=== PATIENT | male | born 1990 | race Caucasian/White ===

== ENCOUNTER 2017-06-02 10:01 | Emergency (ER) | payer OTHER ==
[~2017-06-02] VITALS: Ht 154.9 cm; Wt 50.3 kg
[2017-06-02 10:56] LABS: BASOPHIL % 0.3 % (0-2); PLATELET COUNT 293 x10^3mcL (130-400); RED CELL DISTRIBUTION WIDTH 14.3 % (11.5-14.5)
[2017-06-02 11:03] LABS: CALCIUM 9.6 mg/dL (8.5-10.1); CARBON DIOXIDE 31.4 mmol/L (21-32); CHLORIDE SERUM 100 mmol/L (98-107); GFR1 > 60 mL/min; GLUCOSE SERUM 113 mg/dL (74-106); POTASSIUM SERUM 4.4 mmol/L (3.5-5.1); SODIUM SERUM 138 mmol/L (136-145)
[2017-06-02 11:07] LABS: ALBUMIN 3.7 g/dL (3.4-5.0); ALKALINE PHOSPHATASE 74 U/L (46-116); ALT/SGPT 43 U/L (16-63); AST/SGOT 15 U/L (15-37); BILIRUBIN TOTAL 0.4 mg/dL (0.20-1.00); LIPASE 49 IU/L (73-393); TOTAL PROTEIN, SERUM 7.6 g/dL (6.4-8.2)
[2017-06-02 11:08] LABS: AMYLASE 22 U/L (25-115)
[2017-06-02 12:00] LABS: AMPHETAMINE QUAL UR NONE DETECTED (NEG <=1000)
[2017-06-02 12:02] LABS: microscopic required? YES; urine erythrocyte TRACE (NEGATIVE)
[2017-06-02 13:56] VITALS: BP 135/100
== END 2017-06-02 13:56 | disposition home or self-care (01) ==
LOC: ED 10:01
PROVIDERS: Emergency Medicine
DX: R11.10 Vomiting, unspecified (principal); E11.9 Type 2 diabetes mellitus without complications; F12.90 Cannabis use, unspecified, uncomplicated; F17.210 Nicotine dependence, cigarettes, uncomplicated; Z71.6 Tobacco abuse counseling
CPT/HCPCS: 82962; 99406; J1630; J2060; Q0092; Q9967

== ENCOUNTER 2017-06-28 12:44 | Inpatient (IN) | payer OTHER ==
[~2017-06-28] VITALS: Ht 154.9 cm; Wt 53.1 kg
[2017-06-28 13:12] LABS: BASOPHIL % 0.2 % (0-2); PLATELET COUNT 339 x10^3mcL (130-400); RED CELL DISTRIBUTION WIDTH 14.1 % (11.5-14.5)
[2017-06-28 13:30] LABS: CALCIUM 10.2 mg/dL (8.5-10.1); CARBON DIOXIDE 32.4 mmol/L (21-32); CHLORIDE SERUM 101 mmol/L (98-107); CREATININE SERUM 0.9 mg/dL (0.7-1.3); GFR1 > 60 mL/min; GLUCOSE SERUM 168 mg/dL (74-106); POTASSIUM SERUM 4.2 mmol/L (3.5-5.1); SODIUM SERUM 140 mmol/L (136-145)
[2017-06-28 13:34] LABS: ALBUMIN 3.8 g/dL (3.4-5.0); ALKALINE PHOSPHATASE 100 U/L (46-116); ALT/SGPT 20 U/L (16-63); AST/SGOT 13 U/L (15-37); BILIRUBIN TOTAL 0.5 mg/dL (0.20-1.00); LIPASE 80 IU/L (73-393); TOTAL PROTEIN, SERUM 8.1 g/dL (6.4-8.2); TRIGLYCERIDES 147 mg/dL (<150)
[2017-06-28 13:36] LABS: CHOLESTEROL 228 mg/dL (<200); CHOLESTEROL/HDL RATIO 2.1; HDL CHOLESTEROL 110 mg/dL (40-60)
[2017-06-28 13:43] LABS: FREE T4 1.1 ng/dL (0.76-1.46); FREE THYROXINE INDEX 3.3 ug/dL (1.4-4.5); T4(THYROXINE) 8.8 ug/dL (4.7-13.3)
[2017-06-28 14:08] LABS: microscopic required? YES; urine erythrocyte 1+ (NEGATIVE)
[2017-06-28 14:12] LABS: T3 TOTAL 1.02 ng/mL
[2017-06-28] MEDS ORDERED: NOVI SQ (14:33)
[2017-06-28] MEDS ORDERED: LANTUS SOLOS100 U/M1 (14:34)
[2017-06-28] MEDS ORDERED: LANTUS SOLOS100 U/M1 SQ (14:34)
[2017-06-28] MEDS ORDERED: REG10 PO (14:35)
[2017-06-28] MEDS ORDERED: ROB500 PO (14:38)
[2017-06-28] MEDS ORDERED: GOOD SENSE OMEP20 MG PO (14:38)
[2017-06-28] MEDS ORDERED: ZOFRAN8 MG PO (14:39)
[2017-06-28] MEDS ORDERED: NEU300 PO (14:39)
[2017-06-28] MEDS ORDERED: LIDODERM51 TOP (14:39)
[2017-06-28] MEDS ORDERED: EPZICOM1 TAB (14:39)
[2017-06-28 15:22] LABS: AMPHETAMINE QUAL UR NONE DETECTED (NEG <=1000)
[2017-06-28 15:24] LABS: MAGNESIUM 2.1 mg/dL (1.8-2.4); PHOSPHOROUS 3.5 mg/dL (2.5-4.9)
[2017-06-28 16:07] VITALS: BP 149/88
[2017-06-28 20:57] VITALS: BP 141/92
[2017-06-29 05:28] VITALS: BP 138/86
[2017-06-29 07:09] LABS: BASOPHIL % 0.4 % (0-2); PLATELET COUNT 251 x10^3mcL (130-400); RED CELL DISTRIBUTION WIDTH 14.1 % (11.5-14.5)
[2017-06-29 07:20] LABS: CALCIUM 8.4 mg/dL (8.5-10.1); CARBON DIOXIDE 30.8 mmol/L (21-32); CHLORIDE SERUM 107 mmol/L (98-107); CREATININE SERUM 0.8 mg/dL (0.7-1.3); GFR1 > 60 mL/min; GLUCOSE SERUM 105 mg/dL (74-106); MAGNESIUM 1.7 mg/dL (1.8-2.4); PHOSPHOROUS 3.9 mg/dL (2.5-4.9); POTASSIUM SERUM 3.7 mmol/L (3.5-5.1); SODIUM SERUM 142 mmol/L (136-145)
[2017-06-29 09:31] VITALS: BP 133/74
== END 2017-06-29 12:18 | disposition left against medical advice (07) | DRG 48 ==
LOC: ED 12:44 → DU 15:13
PROVIDERS: Internal Medicine Gastroenterology; Specialist; ADMIT Family Medicine
PROC: 0DB78ZX Excision of Stomach, Pylorus, Via Natural or Artificial Opening Endoscopic, Diagnostic (ICD-10-PCS; principal; 2017-06-29 09:45)
DX: E10.43 Type 1 diabetes mellitus with diabetic autonomic (poly)neuropathy (principal); N17.0 Acute kidney failure with tubular necrosis; E10.65 Type 1 diabetes mellitus with hyperglycemia; K31.84 Gastroparesis; K21.9 Gastro-esophageal reflux disease without esophagitis; E83.52 Hypercalcemia; E78.5 Hyperlipidemia, unspecified; F12.10 Cannabis abuse, uncomplicated; F14.10 Cocaine abuse, uncomplicated; Z79.4 Long term (current) use of insulin; Z68.22 Body mass index [BMI] 22.0-22.9, adult; Z79.899 Other long term (current) drug therapy; Z53.29 Procedure and treatment not carried out because of patient's decision for other reasons; Z53.21 Procedure and treatment not carried out due to patient leaving prior to being seen by health care provider; I10 Essential (primary) hypertension
CPT/HCPCS: 43235; 82962; 83880; 84439; J1170; J1200; J1610; J2250; J2270; J2310; J2405; J2765; J3010; J3490; J7030; J7042; J8597; Q0092

== ENCOUNTER 2017-08-16 07:52 | Emergency (ER) | payer OTHER ==
[~2017-08-16] VITALS: Ht 154.9 cm; Wt 54.4 kg
[~2017-08-16 07:52] MED LIST: EPZICOM1 TAB; GOOD SENSE OMEP20 MG PO; LANTUS SOLOS100 U/M1; LANTUS SOLOS100 U/M1 SQ; LIDODERM51 TOP; NEU300 PO; NOVI SQ; REG10 PO; ROB500 PO; ZOFRAN8 MG PO
[2017-08-16 08:36] LABS: BASOPHIL % 0.3 % (0-2); PLATELET COUNT 269 x10^3mcL (130-400); RED CELL DISTRIBUTION WIDTH 14.3 % (11.5-14.5)
[2017-08-16 08:48] LABS: CALCIUM 9.3 mg/dL (8.5-10.1); CARBON DIOXIDE 30.9 mmol/L (21-32); CHLORIDE SERUM 103 mmol/L (98-107); GFR1 > 60 mL/min; GLUCOSE SERUM 231 mg/dL (74-106); POTASSIUM SERUM 4.2 mmol/L (3.5-5.1); SODIUM SERUM 138 mmol/L (136-145)
[2017-08-16 08:52] LABS: ALBUMIN 3.5 g/dL (3.4-5.0); ALKALINE PHOSPHATASE 75 U/L (46-116); ALT/SGPT 20 U/L (16-63); AST/SGOT 21 U/L (15-37); BILIRUBIN TOTAL 0.25 mg/dL (0.20-1.00); LIPASE 82 IU/L (73-393); TOTAL PROTEIN, SERUM 7.4 g/dL (6.4-8.2)
[2017-08-16 08:53] LABS: AMYLASE 24 U/L (25-115)
[2017-08-16 11:17] VITALS: BP 147/96
== END 2017-08-16 11:17 | disposition home or self-care (01) ==
LOC: ED 07:52
PROVIDERS: Specialist
DX: E11.43 Type 2 diabetes mellitus with diabetic autonomic (poly)neuropathy (principal); K31.84 Gastroparesis; K21.9 Gastro-esophageal reflux disease without esophagitis
CPT/HCPCS: 83880; J1170; J1200; J3010; J7030

== ENCOUNTER 2017-09-25 11:00 | Emergency (ER) | payer OTHER ==
[~2017-09-25] VITALS: Ht 154.9 cm; Wt 52.2 kg
[2017-09-25 11:37] VITALS: Ht 154.9 cm; Wt 52.2 kg
[2017-09-25 12:29] LABS: PLATELET COUNT 329 x10^3mcL (130-400); RED CELL DISTRIBUTION WIDTH 14.1 % (11.5-14.5)
[2017-09-25 12:30] LABS: BASOPHIL % 0.7 % (0-2)
[2017-09-25 12:33] LABS: ALKALINE PHOSPHATASE 75 U/L (46-116); ALT/SGPT 19 U/L (16-63); AST/SGOT 13 U/L (15-37); BILIRUBIN TOTAL 0.3 mg/dL (0.20-1.00); CALCIUM 9.7 mg/dL (8.5-10.1); CARBON DIOXIDE 29.5 mmol/L (21-32); CHLORIDE SERUM 101 mmol/L (98-107); CREATININE SERUM 0.9 mg/dL (0.7-1.3); GFR1 > 60 mL/min; GLUCOSE SERUM 150 mg/dL (74-106); LIPASE 65 IU/L (73-393); POTASSIUM SERUM 4.5 mmol/L (3.5-5.1); SODIUM SERUM 140 mmol/L (136-145); TOTAL PROTEIN, SERUM 7.8 g/dL (6.4-8.2)
[2017-09-25 13:46] VITALS: BP 127/61
== END 2017-09-25 13:46 | disposition home or self-care (01) ==
LOC: ED 11:00
PROVIDERS: Emergency Medicine
DX: R10.9 Unspecified abdominal pain (principal); R11.2 Nausea with vomiting, unspecified; E11.43 Type 2 diabetes mellitus with diabetic autonomic (poly)neuropathy; K31.84 Gastroparesis; F17.200 Nicotine dependence, unspecified, uncomplicated; Z88.5 Allergy status to narcotic agent
CPT/HCPCS: J2765; J3010

== ENCOUNTER 2017-10-02 14:23 | Emergency (ER) | payer OTHER ==
[~2017-10-02] VITALS: Ht 154.9 cm; Wt 51.7 kg
[2017-10-02 14:27] VITALS: Ht 154.9 cm; Wt 51.7 kg
[2017-10-02 15:36] LABS: BASOPHIL % 0.5 % (0-2); PLATELET COUNT 269 x10^3mcL (130-400); RED CELL DISTRIBUTION WIDTH 14.3 % (11.5-14.5)
[2017-10-02 15:48] LABS: CALCIUM 9.1 mg/dL (8.5-10.1); CARBON DIOXIDE 28.7 mmol/L (21-32); CHLORIDE SERUM 100 mmol/L (98-107); CREATININE SERUM 0.9 mg/dL (0.7-1.3); GFR1 > 60 mL/min; GLUCOSE SERUM 121 mg/dL (74-106); POTASSIUM SERUM 3.8 mmol/L (3.5-5.1); SODIUM SERUM 139 mmol/L (136-145)
[2017-10-02 15:51] LABS: ALBUMIN 3.4 g/dL (3.4-5.0); ALKALINE PHOSPHATASE 60 U/L (46-116); ALT/SGPT 18 U/L (16-63); AST/SGOT 21 U/L (15-37); BILIRUBIN TOTAL 0.3 mg/dL (0.20-1.00); LIPASE 46 IU/L (73-393)
[2017-10-02 18:00] VITALS: BP 122/75
== END 2017-10-02 18:00 | disposition home or self-care (01) ==
LOC: ED 14:23
PROVIDERS: Emergency Medicine Emergency Medical Services
DX: K31.84 Gastroparesis (principal); E11.9 Type 2 diabetes mellitus without complications; Z88.5 Allergy status to narcotic agent
CPT/HCPCS: J1200; J1630; J1885; J2270; J2405; J3490; J7030

== ENCOUNTER 2017-10-12 05:29 | Emergency (ER) | payer OTHER ==
[~2017-10-12] VITALS: Ht 154.9 cm; Wt 50.8 kg
[2017-10-12 05:36] VITALS: Ht 154.9 cm; Wt 50.8 kg
[2017-10-12 07:00] LABS: BASOPHIL % 0.3 % (0-2); PLATELET COUNT 357 x10^3mcL (130-400); RED CELL DISTRIBUTION WIDTH 14.4 % (11.5-14.5)
[2017-10-12 07:17] LABS: CALCIUM 8.9 mg/dL (8.5-10.1); CARBON DIOXIDE 30.4 mmol/L (21-32); CHLORIDE SERUM 104 mmol/L (98-107); CREATININE SERUM 0.9 mg/dL (0.7-1.3); GFR1 > 60 mL/min; GLUCOSE SERUM 140 mg/dL (74-106); POTASSIUM SERUM 3.8 mmol/L (3.5-5.1); SODIUM SERUM 143 mmol/L (136-145)
[2017-10-12 07:21] LABS: ALBUMIN 3.4 g/dL (3.4-5.0); ALKALINE PHOSPHATASE 63 U/L (46-116); ALT/SGPT 16 U/L (16-63); AMYLASE 21 U/L (25-115); AST/SGOT 14 U/L (15-37); BILIRUBIN TOTAL 0.2 mg/dL (0.20-1.00); LIPASE 60 IU/L (73-393); TOTAL PROTEIN, SERUM 7.1 g/dL (6.4-8.2)
[2017-10-12 10:19] VITALS: BP 112/78
== END 2017-10-12 10:19 | disposition home or self-care (01) ==
LOC: ED 05:29
PROVIDERS: Emergency Medicine
DX: E11.43 Type 2 diabetes mellitus with diabetic autonomic (poly)neuropathy (principal); K31.84 Gastroparesis; F12.929 Cannabis use, unspecified with intoxication, unspecified; Z88.8 Allergy status to other drugs, medicaments and biological substances
CPT/HCPCS: 83880; J1630; J2060; J3010; J7030

== ENCOUNTER 2017-10-19 07:57 | Inpatient (IN) | payer OTHER ==
[~2017-10-19] VITALS: Ht 154.9 cm; Wt 52.9 kg
[2017-10-19 08:20] LABS: BASOPHIL % 0.2 % (0-2); PLATELET COUNT 359 x10^3mcL (130-400)
[2017-10-19 08:21] LABS: RED CELL DISTRIBUTION WIDTH 14.6 % (11.5-14.5)
[2017-10-19 09:36] LABS: ALBUMIN 3.7 g/dL (3.4-5.0); ALKALINE PHOSPHATASE 63 U/L (46-116); ALT/SGPT 18 U/L (16-63); AST/SGOT 18 U/L (15-37); CALCIUM 9.1 mg/dL (8.5-10.1); CARBON DIOXIDE 28.6 mmol/L (21-32); CHLORIDE SERUM 103 mmol/L (98-107); CREATININE SERUM 0.9 mg/dL (0.7-1.3); GFR1 > 60 mL/min; LIPASE 53 IU/L (73-393); SODIUM SERUM 142 mmol/L (136-145); TOTAL PROTEIN, SERUM 7.3 g/dL (6.4-8.2)
[2017-10-19 09:51] LABS: BILIRUBIN TOTAL 0.2 mg/dL (0.20-1.00)
[2017-10-19 10:15] LABS: GLUCOSE SERUM 47 mg/dL (74-106)
[2017-10-19 10:56] LABS: CHOLESTEROL/HDL RATIO 2.1
[2017-10-19 11:05] LABS: FREE T4 0.9 ng/dL (0.76-1.46); FREE THYROXINE INDEX 2.1 ug/dL (1.4-4.5); T4(THYROXINE) 5.4 ug/dL (4.7-13.3)
[2017-10-19 11:17] LABS: T3 TOTAL 1.12 ng/mL
[2017-10-19 11:35] VITALS: BP 145/96
[2017-10-19] MEDS ORDERED: VIS25 PO (13:06)
[2017-10-19] MEDS ORDERED: BENZTROPINE MESY1 MG PO (13:07)
[2017-10-19] MEDS ORDERED: CYMBALTA30 M1 PO (13:07)
[2017-10-19] MEDS ORDERED: BENTYL20 MG PO (13:08)
[2017-10-19] MEDS ORDERED: PEPCID20 MG (13:09)
[2017-10-19] MEDS ORDERED: REGLAN10 M1 PO (13:09)
[2017-10-19] MEDS ORDERED: LANTUS SOLOS100 U/M1 SQ (13:18)
[2017-10-19] MEDS ORDERED: HALOPERIDOL2 MG PO (13:20)
[2017-10-19 15:22] LABS: microscopic required? YES; urine erythrocyte NEGATIVE (NEGATIVE)
[2017-10-19 15:30] LABS: AMPHETAMINE QUAL UR NONE DETECTED (NEG <=1000)
[2017-10-19 17:53] VITALS: BP 129/90
[2017-10-19 21:13] VITALS: BP 141/91
[2017-10-20 05:31] VITALS: BP 168/98
[2017-10-20 09:50] VITALS: BP 152/94
[2017-10-20] MEDS ORDERED: ERY250 PO (10:48)
[2017-10-20 11:06] VITALS: Ht 154.9 cm; Wt 52.9 kg
== END 2017-10-20 11:06 | disposition left against medical advice (07) | DRG 48 ==
LOC: ED 07:57 → DU 10:27 → MU 10-20 08:10
PROVIDERS: Emergency Medicine; Family Medicine
DX: E10.43 Type 1 diabetes mellitus with diabetic autonomic (poly)neuropathy (principal); N17.0 Acute kidney failure with tubular necrosis; G93.41 Metabolic encephalopathy; E10.649 Type 1 diabetes mellitus with hypoglycemia without coma; Z88.8 Allergy status to other drugs, medicaments and biological substances; K21.9 Gastro-esophageal reflux disease without esophagitis; F17.200 Nicotine dependence, unspecified, uncomplicated; K31.84 Gastroparesis; E02 Subclinical iodine-deficiency hypothyroidism; K56.7 Ileus, unspecified
CPT/HCPCS: 84439; 99406; J1885; J2060; J2405; J2550; J3010; J3490; J8597; Q0092; Q9967

== ENCOUNTER 2017-10-21 08:28 | Emergency (ER) | payer OTHER ==
[~2017-10-21] VITALS: Ht 154.9 cm; Wt 50.8 kg
[~2017-10-21 08:28] MED LIST changes: +BENTYL20 MG PO; +BENZTROPINE MESY1 MG PO; +CYMBALTA30 M1 PO; +ERY250 PO; +HALOPERIDOL2 MG PO; +PEPCID20 MG; +REGLAN10 M1 PO; +VIS25 PO
[2017-10-21 08:30] VITALS: Ht 154.9 cm; Wt 50.8 kg
[2017-10-21 08:55] VITALS: BP 164/116
== END 2017-10-21 09:51 | disposition home or self-care (01) ==
LOC: ED 08:28
DX: R10.13 Epigastric pain (principal); E11.43 Type 2 diabetes mellitus with diabetic autonomic (poly)neuropathy; K31.84 Gastroparesis; Z88.5 Allergy status to narcotic agent
CPT/HCPCS: 82962; J1885; J2270

== ENCOUNTER 2017-10-23 07:30 | Emergency (ER) | payer OTHER ==
[~2017-10-23] VITALS: Ht 152.4 cm; Wt 51.7 kg
[2017-10-23 07:37] VITALS: Ht 152.4 cm; Wt 51.7 kg
[2017-10-23 09:02] LABS: microscopic required? YES; urine erythrocyte TRACE (NEGATIVE)
[2017-10-23 09:03] LABS: BASOPHIL % 0.2 % (0-2); PLATELET COUNT 332 x10^3mcL (130-400); RED CELL DISTRIBUTION WIDTH 14.3 % (11.5-14.5)
[2017-10-23 09:09] LABS: CALCIUM 9.4 mg/dL (8.5-10.1); CARBON DIOXIDE 32.6 mmol/L (21-32); CHLORIDE SERUM 101 mmol/L (98-107); CREATININE SERUM 0.8 mg/dL (0.7-1.3); GFR1 > 60 mL/min; GLUCOSE SERUM 81 mg/dL (74-106); POTASSIUM SERUM 4.2 mmol/L (3.5-5.1); SODIUM SERUM 140 mmol/L (136-145)
[2017-10-23 09:10] LABS: AMPHETAMINE QUAL UR NONE DETECTED (NEG <=1000)
[2017-10-23 09:10] LABS: AMYLASE 29 U/L (25-115); LIPASE 136 IU/L (73-393)
[2017-10-23 12:22] VITALS: BP 120/74
== END 2017-10-23 12:22 | disposition home or self-care (01) ==
LOC: ED 07:30
PROVIDERS: Emergency Medicine
DX: R11.2 Nausea with vomiting, unspecified (principal); F12.90 Cannabis use, unspecified, uncomplicated; R10.13 Epigastric pain; F17.210 Nicotine dependence, cigarettes, uncomplicated; E11.65 Type 2 diabetes mellitus with hyperglycemia; E11.43 Type 2 diabetes mellitus with diabetic autonomic (poly)neuropathy; K31.84 Gastroparesis; Z88.8 Allergy status to other drugs, medicaments and biological substances; Z71.6 Tobacco abuse counseling
CPT/HCPCS: 99406; J1630; J2060; J7030

== ENCOUNTER 2017-11-11 11:36 | Emergency (ER) | payer OTHER ==
[~2017-11-11] VITALS: Ht 154.9 cm; Wt 50.3 kg
[2017-11-11 11:43] VITALS: Ht 154.9 cm; Wt 50.3 kg
[2017-11-11 15:32] VITALS: BP 151/103
== END 2017-11-11 15:32 | disposition home or self-care (01) ==
LOC: ED 11:36
DX: E11.43 Type 2 diabetes mellitus with diabetic autonomic (poly)neuropathy (principal); K31.84 Gastroparesis; Z79.4 Long term (current) use of insulin
CPT/HCPCS: J1885; J2270; J2405; J7030

== ENCOUNTER 2017-11-15 22:53 | Inpatient (IN) | payer OTHER ==
[~2017-11-15] VITALS: Ht 154.9 cm; Wt 53.7 kg
[2017-11-15 23:01] VITALS: Ht 154.9 cm; Wt 53.7 kg
[2017-11-16] VITALS (7 sets, daily range): BP systolic 113–162; BP diastolic 69–93
[2017-11-16 00:09] LABS: BASOPHIL % 0.1 % (0-2); PLATELET COUNT 314 x10^3mcL (130-400)
[2017-11-16 00:13] LABS: RED CELL DISTRIBUTION WIDTH 14.9 % (11.5-14.5)
[2017-11-16 00:24] LABS: CALCIUM 9.7 mg/dL (8.5-10.1); CARBON DIOXIDE 23.2 mmol/L (21-32); CHLORIDE SERUM 95 mmol/L (98-107); CREATININE SERUM 1.2 mg/dL (0.7-1.3); GFR1 > 60 mL/min; GLUCOSE SERUM 334 mg/dL (74-106); POTASSIUM SERUM 4.6 mmol/L (3.5-5.1); SODIUM SERUM 138 mmol/L (136-145)
[2017-11-16 00:27] LABS: ALBUMIN 3.6 g/dL (3.4-5.0); ALKALINE PHOSPHATASE 70 U/L (46-116); ALT/SGPT 15 U/L (16-63); AST/SGOT 20 U/L (15-37); BILIRUBIN TOTAL 0.81 mg/dL (0.20-1.00); LIPASE 43 IU/L (73-393); TOTAL PROTEIN, SERUM 7.1 g/dL (6.4-8.2)
[2017-11-16] MEDS ORDERED: LANTI (02:39)
[2017-11-16] MEDS ORDERED: NOVI (02:40)
[2017-11-16 04:03] LABS: T3 TOTAL 0.92 ng/mL
[2017-11-16] MEDS ORDERED: METOCLOPRAMIDE10 M2 PO (04:21)
[2017-11-16 04:26] LABS: FREE T4 1.86 ng/dL (0.76-1.46); FREE THYROXINE INDEX 3.6 ug/dL (1.4-4.5); T4(THYROXINE) 8.9 ug/dL (4.7-13.3)
[2017-11-16 05:17] LABS: MAGNESIUM 1.7 mg/dL (1.8-2.4); PHOSPHOROUS 5.3 mg/dL (2.5-4.9)
[2017-11-16 05:21] LABS: CHOLESTEROL/HDL RATIO 2.3
[2017-11-16 06:57] LABS: UA SPECIFIC GRAVITY 1.025 (1.005-1.035); microscopic required? YES; urine erythrocyte TRACE (NEGATIVE)
[2017-11-16 07:20] LABS: AMPHETAMINE QUAL UR NONE DETECTED (NEG <=1000)
[2017-11-16 09:12] LABS: BASOPHIL % 0.1 % (0-2); PLATELET COUNT 282 x10^3mcL (130-400)
[2017-11-16 09:16] LABS: RED CELL DISTRIBUTION WIDTH 14.7 % (11.5-14.5)
[2017-11-16 09:22] LABS: CALCIUM 8.7 mg/dL (8.5-10.1); CARBON DIOXIDE 22.2 mmol/L (21-32); CHLORIDE SERUM 100 mmol/L (98-107); CREATININE SERUM 1.2 mg/dL (0.7-1.3); GFR1 > 60 mL/min; GLUCOSE SERUM 265 mg/dL (74-106); POTASSIUM SERUM 4.1 mmol/L (3.5-5.1); SODIUM SERUM 136 mmol/L (136-145)
[2017-11-16 12:51] LABS: CALCIUM 8.7 mg/dL (8.5-10.1); CARBON DIOXIDE 26.3 mmol/L (21-32); CHLORIDE SERUM 103 mmol/L (98-107); CREATININE SERUM 1.1 mg/dL (0.7-1.3); GFR1 > 60 mL/min; GLUCOSE SERUM 149 mg/dL (74-106); POTASSIUM SERUM 3.8 mmol/L (3.5-5.1); SODIUM SERUM 139 mmol/L (136-145)
[2017-11-16 18:52] LABS: CARBON DIOXIDE 26.8 mmol/L (21-32); CHLORIDE SERUM 103 mmol/L (98-107); CREATININE SERUM 1.2 mg/dL (0.7-1.3); GFR1 > 60 mL/min; GLUCOSE SERUM 97 mg/dL (74-106); POTASSIUM SERUM 3.4 mmol/L (3.5-5.1); SODIUM SERUM 140 mmol/L (136-145)
[2017-11-16 22:03] LABS: CALCIUM 8.6 mg/dL (8.5-10.1); CARBON DIOXIDE 28.2 mmol/L (21-32); CHLORIDE SERUM 107 mmol/L (98-107); CREATININE SERUM 1.1 mg/dL (0.7-1.3); GFR1 > 60 mL/min; GLUCOSE SERUM 73 mg/dL (74-106); POTASSIUM SERUM 3.5 mmol/L (3.5-5.1); SODIUM SERUM 143 mmol/L (136-145)
[2017-11-17 02:40] LABS: CALCIUM 8.7 mg/dL (8.5-10.1); CARBON DIOXIDE 27.9 mmol/L (21-32); CHLORIDE SERUM 106 mmol/L (98-107); GFR1 > 60 mL/min; GLUCOSE SERUM 79 mg/dL (74-106); POTASSIUM SERUM 3.4 mmol/L (3.5-5.1); SODIUM SERUM 143 mmol/L (136-145)
[2017-11-17 03:26] VITALS: BP 152/92
[2017-11-17 05:59] LABS: BASOPHIL % 0.2 % (0-2); PLATELET COUNT 264 x10^3mcL (130-400)
[2017-11-17 06:01] LABS: RED CELL DISTRIBUTION WIDTH 15.3 % (11.5-14.5)
[2017-11-17 07:35] VITALS: BP 163/92
[2017-11-17 08:50] LABS: CALCIUM 8.4 mg/dL (8.5-10.1); CARBON DIOXIDE 25.3 mmol/L (21-32); CHLORIDE SERUM 105 mmol/L (98-107); CREATININE SERUM 0.9 mg/dL (0.7-1.3); GFR1 > 60 mL/min; GLUCOSE SERUM 155 mg/dL (74-106); POTASSIUM SERUM 3.7 mmol/L (3.5-5.1); SODIUM SERUM 139 mmol/L (136-145)
[2017-11-17 09:31] LABS: IRON 47 ug/dL (65-170); TOTAL IRON BINDING CAPACITY 246 ug/dL (250-450)
[2017-11-17 09:37] LABS: RED BLOOD CELLS 4.15 M/mm3 (4.52-5.90)
[2017-11-17 11:09] VITALS: BP 155/92
== END 2017-11-17 13:35 | disposition left against medical advice (07) | DRG 420 ==
LOC: ED 22:53 → DU 11-16 03:10 → IC 11-16 03:10 → DU 11-16 04:29 → IC 11-16 06:43 → DU 11-16 06:47 → IC 11-16 06:52
PROVIDERS: Emergency Medicine; Family Medicine
DX: E10.10 Type 1 diabetes mellitus with ketoacidosis without coma (principal); N17.0 Acute kidney failure with tubular necrosis; K31.84 Gastroparesis; E10.43 Type 1 diabetes mellitus with diabetic autonomic (poly)neuropathy; E87.8 Other disorders of electrolyte and fluid balance, not elsewhere classified; E83.42 Hypomagnesemia; E83.39 Other disorders of phosphorus metabolism; Z88.8 Allergy status to other drugs, medicaments and biological substances; K21.9 Gastro-esophageal reflux disease without esophagitis; F17.210 Nicotine dependence, cigarettes, uncomplicated; D64.9 Anemia, unspecified; F41.9 Anxiety disorder, unspecified; R00.0 Tachycardia, unspecified
CPT/HCPCS: 36600; 83880; 84439; J1630; J1815; J1885; J2270; J2405; J2543; J2550; J2765; J3010; J3475; J3490; J7030; J7042; Q0092

== ENCOUNTER 2017-12-13 15:27 | Emergency (ER) | payer OTHER ==
[~2017-12-13] VITALS: Ht 154.9 cm; Wt 51.7 kg
[~2017-12-13 15:27] MED LIST changes: +LANTI; +METOCLOPRAMIDE10 M2 PO; +NOVI
[2017-12-13 15:44] VITALS: Ht 154.9 cm; Wt 51.7 kg
[2017-12-13 16:29] LABS: BASOPHIL % 0.4 % (0-2); PLATELET COUNT 318 x10^3mcL (130-400)
[2017-12-13 16:41] LABS: CALCIUM 9.5 mg/dL (8.5-10.1); CARBON DIOXIDE 29.4 mmol/L (21-32); CHLORIDE SERUM 100 mmol/L (98-107); CREATININE SERUM 0.9 mg/dL (0.7-1.3); GFR1 > 60 mL/min; GLUCOSE SERUM 190 mg/dL (74-106); POTASSIUM SERUM 4.8 mmol/L (3.5-5.1); SODIUM SERUM 137 mmol/L (136-145)
[2017-12-13 16:46] LABS: ALBUMIN 3.5 g/dL (3.4-5.0); ALKALINE PHOSPHATASE 66 U/L (46-116); ALT/SGPT 20 U/L (16-63); AST/SGOT 18 U/L (15-37); BILIRUBIN TOTAL 0.63 mg/dL (0.20-1.00); LIPASE 107 IU/L (73-393); TOTAL PROTEIN, SERUM 7.2 g/dL (6.4-8.2)
[2017-12-13 17:39] VITALS: BP 168/101
[2017-12-14] MEDS ORDERED: GABAPENTIN300 M4 PO (20:18)
[2017-12-14] MEDS ORDERED: NEU300 PO (20:19)
== END 2017-12-13 17:39 | disposition home or self-care (01) ==
LOC: ED 15:27
PROVIDERS: Emergency Medicine
DX: E11.43 Type 2 diabetes mellitus with diabetic autonomic (poly)neuropathy (principal); K31.84 Gastroparesis; Z88.5 Allergy status to narcotic agent
CPT/HCPCS: J1200; J2270; J2765; J7030

== ENCOUNTER 2017-12-14 01:20 | Inpatient (IN) | payer OTHER ==
[~2017-12-14] VITALS: Ht 154.9 cm; Wt 55.0 kg
[2017-12-14 01:39] VITALS: Ht 154.9 cm; Wt 55.0 kg
[2017-12-14 02:36] LABS: PLATELET COUNT 326 x10^3mcL (130-400); RED CELL DISTRIBUTION WIDTH 14.5 % (11.5-14.5)
[2017-12-14 02:46] LABS: CALCIUM 9.6 mg/dL (8.5-10.1); CARBON DIOXIDE 24.6 mmol/L (21-32); CHLORIDE SERUM 97 mmol/L (98-107); GFR1 > 60 mL/min; GLUCOSE SERUM 337 mg/dL (74-106); POTASSIUM SERUM 4.4 mmol/L (3.5-5.1); SODIUM SERUM 133 mmol/L (136-145)
[2017-12-14 02:51] LABS: ALBUMIN 3.5 g/dL (3.4-5.0); ALKALINE PHOSPHATASE 67 U/L (46-116); ALT/SGPT 18 U/L (16-63); AST/SGOT 15 U/L (15-37); BILIRUBIN TOTAL 0.8 mg/dL (0.20-1.00); LIPASE 58 IU/L (73-393); TOTAL PROTEIN, SERUM 6.8 g/dL (6.4-8.2)
[2017-12-14 02:52] LABS: AMYLASE 24 U/L (25-115)
[2017-12-14 03:04] LABS: BAND NEUTROPHIL 1 % (0-10); BASOPHIL 0 % (0-2); MONOCYTE 3 % (0-7); SEGMENTED NEUTROPHILS 85 % (37-75)
[2017-12-14 03:05] LABS: PLATELET MORPHOLOGY PLATELETS NORMAL; rbc morphology (normal/abnorm) NORMAL (NORMAL)
[2017-12-14 03:35] LABS: UA SPECIFIC GRAVITY 1.025 (1.005-1.035); microscopic required? YES; urine erythrocyte 2+ (NEGATIVE)
[2017-12-14 03:52] LABS: AMPHETAMINE QUAL UR NONE DETECTED (NEG <=1000)
[2017-12-14 07:55] LABS: PLATELET COUNT 319 x10^3mcL (130-400)
[2017-12-14 07:56] LABS: BASOPHIL % 0 % (0-2); RED CELL DISTRIBUTION WIDTH 15.6 % (11.5-14.5)
[2017-12-14 08:23] LABS: T3 TOTAL 0.63 ng/mL
[2017-12-14 08:38] LABS: CHOLESTEROL/HDL RATIO 1.8
[2017-12-14 09:30] LABS: FREE T4 1.23 ng/dL (0.76-1.46); T4(THYROXINE) 8.2 ug/dL (4.7-13.3)
[2017-12-14 10:28] LABS: CALCIUM 9.6 mg/dL (8.5-10.1); CARBON DIOXIDE 16.2 mmol/L (21-32); CHLORIDE SERUM 99 mmol/L (98-107); GFR1 > 60 mL/min; GLUCOSE SERUM 343 mg/dL (74-106); MAGNESIUM 1.6 mg/dL (1.8-2.4); PHOSPHOROUS 4.1 mg/dL (2.5-4.9); POTASSIUM SERUM 4.9 mmol/L (3.5-5.1); SODIUM SERUM 138 mmol/L (136-145)
[2017-12-14 13:42] VITALS: BP 148/72
[2017-12-14 14:06] LABS: CALCIUM 9.3 mg/dL (8.5-10.1); CARBON DIOXIDE 20.5 mmol/L (21-32); CREATININE SERUM 1.4 mg/dL (0.7-1.3); GFR1 > 60 mL/min; GLUCOSE SERUM 287 mg/dL (74-106); MAGNESIUM 1.9 mg/dL (1.8-2.4); PHOSPHOROUS 3.9 mg/dL (2.5-4.9)
[2017-12-14 14:14] LABS: CHLORIDE SERUM 100 mmol/L (98-107); POTASSIUM SERUM 4.4 mmol/L (3.5-5.1); SODIUM SERUM 136 mmol/L (136-145)
[2017-12-14 15:34] VITALS: BP 132/63
[2017-12-14 16:31] LABS: CALCIUM 8.9 mg/dL (8.5-10.1); CARBON DIOXIDE 25.5 mmol/L (21-32); CHLORIDE SERUM 105 mmol/L (98-107); CREATININE SERUM 1.3 mg/dL (0.7-1.3); GFR1 > 60 mL/min; GLUCOSE SERUM 146 mg/dL (74-106); MAGNESIUM 2.6 mg/dL (1.8-2.4); PHOSPHOROUS 3.3 mg/dL (2.5-4.9); POTASSIUM SERUM 4.1 mmol/L (3.5-5.1); SODIUM SERUM 140 mmol/L (136-145)
[2017-12-14 19:45] VITALS: BP 139/85
[2017-12-14] MEDS ORDERED: GABAPENTIN300 M4 PO (20:18)
[2017-12-14] MEDS ORDERED: NEU300 PO (20:19)
[2017-12-14 20:46] LABS: CALCIUM 8.9 mg/dL (8.5-10.1); CARBON DIOXIDE 24.4 mmol/L (21-32); CHLORIDE SERUM 104 mmol/L (98-107); CREATININE SERUM 1.1 mg/dL (0.7-1.3); GFR1 > 60 mL/min; GLUCOSE SERUM 95 mg/dL (74-106); MAGNESIUM 2.4 mg/dL (1.8-2.4); PHOSPHOROUS 3.1 mg/dL (2.5-4.9); POTASSIUM SERUM 3.9 mmol/L (3.5-5.1); SODIUM SERUM 139 mmol/L (136-145)
[2017-12-14 23:05] VITALS: BP 130/77
[2017-12-15 00:59] LABS: CALCIUM 8.8 mg/dL (8.5-10.1); CARBON DIOXIDE 24.8 mmol/L (21-32); CHLORIDE SERUM 104 mmol/L (98-107); GFR1 > 60 mL/min; MAGNESIUM 2.2 mg/dL (1.8-2.4); PHOSPHOROUS 3.3 mg/dL (2.5-4.9); POTASSIUM SERUM 3.6 mmol/L (3.5-5.1); SODIUM SERUM 138 mmol/L (136-145)
[2017-12-15 01:02] LABS: GLUCOSE SERUM 38 mg/dL (74-106)
[2017-12-15 03:00] VITALS: BP 134/82
[2017-12-15 05:32] LABS: BASOPHIL % 0.3 % (0-2)
[2017-12-15 05:37] LABS: PLATELET COUNT 269 x10^3mcL (130-400)
[2017-12-15 05:38] LABS: RED CELL DISTRIBUTION WIDTH 15.7 % (11.5-14.5)
[2017-12-15 05:50] LABS: CALCIUM 8.6 mg/dL (8.5-10.1); CARBON DIOXIDE 23.5 mmol/L (21-32); CHLORIDE SERUM 107 mmol/L (98-107); CREATININE SERUM 0.9 mg/dL (0.7-1.3); GFR1 > 60 mL/min; GLUCOSE SERUM 95 mg/dL (74-106); MAGNESIUM 2.1 mg/dL (1.8-2.4); POTASSIUM SERUM 3.5 mmol/L (3.5-5.1); SODIUM SERUM 139 mmol/L (136-145)
[2017-12-15 07:30] VITALS: BP 132/91
[2017-12-15 11:04] VITALS: BP 145/95
[2017-12-15 12:13] VITALS: BP 159/98
== END 2017-12-15 12:25 | disposition left against medical advice (07) | DRG 241 ==
LOC: ED 01:20 → IC 11:50 → DU 12-15 12:10
PROVIDERS: Emergency Medicine; Family Medicine
DX: K29.70 Gastritis, unspecified, without bleeding (principal); N17.0 Acute kidney failure with tubular necrosis; E10.10 Type 1 diabetes mellitus with ketoacidosis without coma; K31.84 Gastroparesis; E10.42 Type 1 diabetes mellitus with diabetic polyneuropathy; E83.41 Hypermagnesemia; E10.43 Type 1 diabetes mellitus with diabetic autonomic (poly)neuropathy; K21.9 Gastro-esophageal reflux disease without esophagitis; Z53.21 Procedure and treatment not carried out due to patient leaving prior to being seen by health care provider; R31.9 Hematuria, unspecified; F19.10 Other psychoactive substance abuse, uncomplicated; E10.65 Type 1 diabetes mellitus with hyperglycemia; F14.10 Cocaine abuse, uncomplicated; Z88.5 Allergy status to narcotic agent
CPT/HCPCS: 36600; 83880; 84439; J0696; J1815; J1885; J2270; J2765; J3475; J3490; J7030; J8597; Q0092

== ENCOUNTER 2017-12-24 15:37 | Emergency (ER) | payer OTHER ==
[~2017-12-24] VITALS: Ht 154.9 cm; Wt 49.0 kg
[~2017-12-24 15:37] MED LIST changes: +GABAPENTIN300 M4 PO
[2017-12-24 15:56] VITALS: Ht 154.9 cm; Wt 49.0 kg
[2017-12-24 16:43] LABS: CALCIUM 10.6 mg/dL (8.5-10.1); CARBON DIOXIDE 30.6 mmol/L (21-32); CREATININE SERUM 1.8 mg/dL (0.7-1.3); POTASSIUM SERUM 4.6 mmol/L (3.5-5.1)
[2017-12-24 16:48] LABS: ALBUMIN 4.4 g/dL (3.4-5.0); BILIRUBIN TOTAL 0.5 mg/dL (0.20-1.00)
[2017-12-24 16:49] LABS: TOTAL PROTEIN, SERUM 8.5 g/dL (6.4-8.2)
[2017-12-24 16:51] LABS: BASOPHIL % 0.3 % (0-2)
[2017-12-24 16:52] LABS: PLATELET COUNT 424 x10^3mcL (130-400); RED CELL DISTRIBUTION WIDTH 15.4 % (11.5-14.5)
[2017-12-24 19:17] VITALS: BP 131/81
== END 2017-12-24 19:17 | disposition home or self-care (01) ==
LOC: ED 15:37
PROVIDERS: Emergency Medicine
DX: R10.84 Generalized abdominal pain (principal); E86.0 Dehydration; I10 Essential (primary) hypertension; E11.40 Type 2 diabetes mellitus with diabetic neuropathy, unspecified; Z88.5 Allergy status to narcotic agent
CPT/HCPCS: J1200; J1885; J2550; J3490; J7030; Q0092

== ENCOUNTER 2018-01-16 18:15 | Inpatient (IN) | payer OTHER ==
[~2018-01-16] VITALS: Ht 154.9 cm; Wt 53.1 kg
[2018-01-16 18:20] VITALS: Ht 154.9 cm; Wt 53.1 kg
[2018-01-16 19:10] LABS: BASOPHIL % 0.3 % (0-2); PLATELET COUNT 340 x10^3mcL (130-400)
[2018-01-16 19:11] LABS: RED CELL DISTRIBUTION WIDTH 14.8 % (11.5-14.5)
[2018-01-16 19:18] LABS: CALCIUM 9.9 mg/dL (8.5-10.1); CARBON DIOXIDE 31.1 mmol/L (21-32); CHLORIDE SERUM 97 mmol/L (98-107); CREATININE SERUM 1.1 mg/dL (0.7-1.3); GFR1 > 60 mL/min; GLUCOSE SERUM 93 mg/dL (74-106); POTASSIUM SERUM 3.4 mmol/L (3.5-5.1); SODIUM SERUM 138 mmol/L (136-145)
[2018-01-16 19:22] LABS: ALKALINE PHOSPHATASE 70 U/L (46-116); ALT/SGPT 16 U/L (16-63); AST/SGOT 14 U/L (15-37); BILIRUBIN TOTAL 0.66 mg/dL (0.20-1.00); LIPASE 55 IU/L (73-393); TOTAL PROTEIN, SERUM 7.6 g/dL (6.4-8.2)
[2018-01-16] MEDS ORDERED: REG5 PO (21:42)
[2018-01-16] MEDS ORDERED: GABAPENTIN600 M1 PO (21:42)
[2018-01-16] MEDS ORDERED: ERYTHROMYCIN D PO (21:43)
[2018-01-16] MEDS ORDERED: ZESTRIL5 MG PO (21:43)
[2018-01-16] MEDS ORDERED: ZOF4 (21:43)
[2018-01-16] MEDS ORDERED: LANTUS SOLOS100 U/M1 (21:43)
[2018-01-16] MEDS ORDERED: HUMALOG100 U/ML (21:44)
[2018-01-16] MEDS ORDERED: CYCLOBENZAPRINE5 MG (21:45)
[2018-01-16 22:46] LABS: UA SPECIFIC GRAVITY 1.015 (1.005-1.035); microscopic required? YES; urine erythrocyte TRACE (NEGATIVE)
[2018-01-16 23:23] VITALS: BP 124/84
[2018-01-16 23:56] LABS: AMPHETAMINE QUAL UR NONE DETECTED (NEG <=1000)
[2018-01-17 01:14] LABS: MAGNESIUM 2.1 mg/dL (1.8-2.4); PHOSPHOROUS 3.8 mg/dL (2.5-4.9)
[2018-01-17 01:16] LABS: T3 TOTAL 1.22 ng/mL
[2018-01-17 01:20] LABS: FREE T4 1.27 ng/dL (0.76-1.46); FREE THYROXINE INDEX 3.5 ug/dL (1.4-4.5); T4(THYROXINE) 9.6 ug/dL (4.7-13.3)
[2018-01-17 01:33] LABS: CHOLESTEROL/HDL RATIO 2.5
== END 2018-01-17 05:28 | disposition left against medical advice (07) | DRG 247 ==
LOC: ED 18:15 → DU 21:55 → MU 23:21 → DU 01-17 01:00
PROVIDERS: Emergency Medicine; Family Medicine
DX: K56.7 Ileus, unspecified (principal); N17.0 Acute kidney failure with tubular necrosis; E11.43 Type 2 diabetes mellitus with diabetic autonomic (poly)neuropathy; K31.84 Gastroparesis; Z88.8 Allergy status to other drugs, medicaments and biological substances; I10 Essential (primary) hypertension; E86.0 Dehydration; F32.9 Major depressive disorder, single episode, unspecified; K21.9 Gastro-esophageal reflux disease without esophagitis; E87.6 Hypokalemia
CPT/HCPCS: 36600; 83880; 84439; G0378; J1200; J1815; J1885; J2270; J2550; J7030

== ENCOUNTER 2018-01-29 07:14 | Emergency (ER) | payer OTHER ==
[~2018-01-29] VITALS: Ht 154.9 cm; Wt 53.1 kg
[~2018-01-29 07:14] MED LIST changes: +CYCLOBENZAPRINE5 MG; +ERYTHROMYCIN D PO; +GABAPENTIN600 M1 PO; +HUMALOG100 U/ML; +REG5 PO; +ZESTRIL5 MG PO; +ZOF4
[2018-01-29 07:24] VITALS: Ht 154.9 cm; Wt 53.1 kg
[2018-01-29 08:42] LABS: UA SPECIFIC GRAVITY 1.025 (1.005-1.035); microscopic required? YES; urine erythrocyte 1+ (NEGATIVE)
[2018-01-29 08:45] LABS: BASOPHIL % 0.3 % (0-2); PLATELET COUNT 290 x10^3mcL (130-400)
[2018-01-29 08:50] LABS: RED CELL DISTRIBUTION WIDTH 14.6 % (11.5-14.5)
[2018-01-29 08:52] LABS: CALCIUM 9.5 mg/dL (8.5-10.1); CARBON DIOXIDE 30.5 mmol/L (21-32); CHLORIDE SERUM 102 mmol/L (98-107); CREATININE SERUM 0.9 mg/dL (0.7-1.3); GFR1 > 60 mL/min; GLUCOSE SERUM 221 mg/dL (74-106); POTASSIUM SERUM 5.2 mmol/L (3.5-5.1); SODIUM SERUM 135 mmol/L (136-145)
[2018-01-29 08:56] LABS: ALBUMIN 3.6 g/dL (3.4-5.0); ALKALINE PHOSPHATASE 69 U/L (46-116); ALT/SGPT 19 U/L (16-63); AMYLASE 29 U/L (25-115); AST/SGOT 16 U/L (15-37); BILIRUBIN TOTAL 0.4 mg/dL (0.20-1.00); CHOLESTEROL 191 mg/dL (<200); LIPASE 61 IU/L (73-393)
[2018-01-29 09:03] LABS: HDL CHOLESTEROL 74 mg/dL (40-60)
[2018-01-29 09:09] LABS: AMPHETAMINE QUAL UR NONE DETECTED (NEG <=1000)
[2018-01-29 12:39] VITALS: BP 134/89
== END 2018-01-29 12:39 | disposition home or self-care (01) ==
LOC: ED 07:14
PROVIDERS: Emergency Medicine
DX: E11.43 Type 2 diabetes mellitus with diabetic autonomic (poly)neuropathy (principal); K31.84 Gastroparesis; K59.00 Constipation, unspecified; I10 Essential (primary) hypertension; F12.90 Cannabis use, unspecified, uncomplicated; F17.210 Nicotine dependence, cigarettes, uncomplicated; Z71.6 Tobacco abuse counseling; Z88.5 Allergy status to narcotic agent
CPT/HCPCS: 83880; 99406; J1630; J1815; J2060; J7030

== ENCOUNTER 2018-02-06 06:42 | Emergency (ER) | payer OTHER ==
[~2018-02-06] VITALS: Ht 154.9 cm; Wt 54.5 kg
[2018-02-06 06:55] VITALS: Ht 154.9 cm; Wt 54.5 kg
[2018-02-06 07:41] LABS: BASOPHIL % 0.3 % (0-2); PLATELET COUNT 269 x10^3mcL (130-400); RED CELL DISTRIBUTION WIDTH 14.5 % (11.5-14.5)
[2018-02-06 07:49] LABS: CALCIUM 8.9 mg/dL (8.5-10.1); CHLORIDE SERUM 104 mmol/L (98-107); GFR1 > 60 mL/min; GLUCOSE SERUM 77 mg/dL (74-106); POTASSIUM SERUM 4.2 mmol/L (3.5-5.1); SODIUM SERUM 138 mmol/L (136-145)
[2018-02-06 07:53] LABS: ALBUMIN 3.5 g/dL (3.4-5.0); ALKALINE PHOSPHATASE 71 U/L (46-116); ALT/SGPT 16 U/L (16-63); AMYLASE 26 U/L (25-115); AST/SGOT 14 U/L (15-37); BILIRUBIN TOTAL 0.3 mg/dL (0.20-1.00); LIPASE 67 IU/L (73-393); TOTAL PROTEIN, SERUM 6.8 g/dL (6.4-8.2)
[2018-02-06 08:24] VITALS: BP 172/99
== END 2018-02-06 10:19 | disposition home or self-care (01) ==
LOC: ED 06:42
PROVIDERS: Specialist
DX: K31.84 Gastroparesis (principal); I10 Essential (primary) hypertension; E11.40 Type 2 diabetes mellitus with diabetic neuropathy, unspecified; Z88.5 Allergy status to narcotic agent
CPT/HCPCS: 83880; J1200; J1630; J2270; J2405; J3010

== ENCOUNTER 2018-03-07 12:20 | Emergency (ER) | payer OTHER ==
[~2018-03-07] VITALS: Ht 154.9 cm; Wt 51.7 kg
[2018-03-07 12:29] VITALS: Ht 154.9 cm; Wt 51.7 kg
[2018-03-07 13:33] LABS: CALCIUM 9.3 mg/dL (8.5-10.1); CARBON DIOXIDE 34.2 mmol/L (21-32); CHLORIDE SERUM 102 mmol/L (98-107); CREATININE SERUM 0.9 mg/dL (0.7-1.3); GFR1 > 60 mL/min; GLUCOSE SERUM 180 mg/dL (74-106); POTASSIUM SERUM 3.9 mmol/L (3.5-5.1); SODIUM SERUM 142 mmol/L (136-145)
[2018-03-07 13:50] LABS: BASOPHIL % 0.3 % (0-2); PLATELET COUNT 304 x10^3mcL (130-400)
[2018-03-07 13:52] LABS: RED CELL DISTRIBUTION WIDTH 14.6 % (11.5-14.5)
[2018-03-07 19:38] VITALS: BP 128/99
== END 2018-03-07 19:38 | disposition home or self-care (01) ==
LOC: ED 12:20
PROVIDERS: Emergency Medicine Emergency Medical Services
DX: E11.43 Type 2 diabetes mellitus with diabetic autonomic (poly)neuropathy (principal); K31.84 Gastroparesis; I10 Essential (primary) hypertension; Z88.8 Allergy status to other drugs, medicaments and biological substances; Z88.5 Allergy status to narcotic agent
CPT/HCPCS: 36415; J1885; J8597; Q0162; Q0163

== ENCOUNTER 2018-04-09 13:06 | Inpatient (IN) | payer OTHER ==
[~2018-04-09] VITALS: Ht 154.9 cm; Wt 52.2 kg
[~2018-04-09 13:06] MED LIST changes: +BENTYL PO; -BENTYL20 MG PO
[2018-04-09 13:11] VITALS: Ht 154.9 cm; Wt 52.2 kg
[2018-04-09 13:37] LABS: BASOPHIL % 0.4 % (0-2); PLATELET COUNT 351 x10^3mcL (130-400)
[2018-04-09 13:40] LABS: RED CELL DISTRIBUTION WIDTH 14.8 % (11.5-14.5)
[2018-04-09 13:46] LABS: CALCIUM 10.5 mg/dL (8.5-10.1); CARBON DIOXIDE 26.5 mmol/L (21-32); CHLORIDE SERUM 97 mmol/L (98-107); CREATININE SERUM 1.4 mg/dL (0.7-1.3); GFR1 > 60 mL/min; GLUCOSE SERUM 212 mg/dL (74-106); SODIUM SERUM 132 mmol/L (136-145)
[2018-04-09 13:51] LABS: ALBUMIN 4.3 g/dL (3.4-5.0); ALKALINE PHOSPHATASE 65 U/L (46-116); ALT/SGPT 16 U/L (16-63); AST/SGOT 16 U/L (15-37); BILIRUBIN TOTAL 0.78 mg/dL (0.20-1.00); LIPASE 61 IU/L (73-393); TOTAL PROTEIN, SERUM 7.8 g/dL (6.4-8.2)
[2018-04-09 13:53] LABS: AMYLASE 18 U/L (25-115)
[2018-04-09 16:44] VITALS: BP 170/102
[2018-04-09 17:09] LABS: MAGNESIUM 2.2 mg/dL (1.8-2.4); PHOSPHOROUS 3.9 mg/dL (2.5-4.9)
[2018-04-09 17:10] LABS: CHOLESTEROL/HDL RATIO 2.4
[2018-04-09 17:18] LABS: T3 TOTAL 1.19 ng/mL
[2018-04-09 17:34] LABS: FREE T4 1.2 ng/dL (0.76-1.46); FREE THYROXINE INDEX 3.2 ug/dL (1.4-4.5); T4(THYROXINE) 8.5 ug/dL (4.7-13.3)
[2018-04-09 20:53] VITALS: BP 126/71
[2018-04-10 05:45] VITALS: BP 105/66
[2018-04-10 06:44] LABS: BASOPHIL % 0.3 % (0-2); PLATELET COUNT 281 x10^3mcL (130-400); RED CELL DISTRIBUTION WIDTH 14.3 % (11.5-14.5)
[2018-04-10 07:03] LABS: CALCIUM 8.4 mg/dL (8.5-10.1); CARBON DIOXIDE 29.8 mmol/L (21-32); CREATININE SERUM 1.5 mg/dL (0.7-1.3); POTASSIUM SERUM 4.6 mmol/L (3.5-5.1)
[2018-04-10 09:10] VITALS: BP 119/69
[2018-04-10 11:12] VITALS: BP 119/69
== END 2018-04-10 11:27 | disposition home or self-care (01) | DRG 720 ==
LOC: ED 13:06 → DU 14:54
PROVIDERS: Emergency Medicine; Family Medicine
DX: A41.9 Sepsis, unspecified organism (principal); N17.0 Acute kidney failure with tubular necrosis; K31.84 Gastroparesis; E10.43 Type 1 diabetes mellitus with diabetic autonomic (poly)neuropathy; E10.65 Type 1 diabetes mellitus with hyperglycemia; E87.1 Hypo-osmolality and hyponatremia; E83.51 Hypocalcemia; K56.7 Ileus, unspecified; F17.210 Nicotine dependence, cigarettes, uncomplicated; E86.0 Dehydration; K29.70 Gastritis, unspecified, without bleeding; I16.0 Hypertensive urgency; I10 Essential (primary) hypertension; E78.00 Pure hypercholesterolemia, unspecified; Z79.4 Long term (current) use of insulin; Z88.6 Allergy status to analgesic agent; Z79.899 Other long term (current) drug therapy
CPT/HCPCS: 83880; 84439; J1885; J1956; J2765; J3490; J7030; J8597; Q0092; Q0163

== ENCOUNTER 2018-08-26 13:24 | Inpatient (IN) | payer OTHER ==
[~2018-08-26] VITALS: Ht 154.9 cm; Wt 54.4 kg
[2018-08-26 14:05] LABS: CALCIUM 9.7 mg/dL (8.5-10.1); CARBON DIOXIDE 29.5 mmol/L (21-32); CHLORIDE SERUM 101 mmol/L (98-107); CREATININE SERUM 1.3 mg/dL (0.7-1.3); GFR1 > 60 mL/min; GLUCOSE SERUM 329 mg/dL (74-106); POTASSIUM SERUM 4.4 mmol/L (3.5-5.1); SODIUM SERUM 137 mmol/L (136-145)
[2018-08-26 14:10] LABS: ALBUMIN 4.2 g/dL (3.4-5.0); ALKALINE PHOSPHATASE 77 U/L (46-116); ALT/SGPT 19 U/L (16-63); AST/SGOT 14 U/L (15-37); LIPASE 54 IU/L (73-393); TOTAL PROTEIN, SERUM 7.8 g/dL (6.4-8.2)
[2018-08-26 14:14] LABS: BASOPHIL % 0.2 % (0-2); PLATELET COUNT 292 x10^3mcL (130-400)
[2018-08-26 14:20] LABS: RED CELL DISTRIBUTION WIDTH 14.6 % (11.5-14.5)
[2018-08-26 15:37] LABS: AMPHETAMINE QUAL UR NONE DETECTED (See below)
[2018-08-26 16:13] LABS: UA SPECIFIC GRAVITY 1.025 (1.005-1.035); microscopic required? YES; urine erythrocyte 2+ (NEGATIVE)
[2018-08-26 16:17] LABS: CHOLESTEROL/HDL RATIO 2.2
[2018-08-26 16:25] VITALS: BP 109/85
[2018-08-26 16:27] VITALS: Ht 154.9 cm; Wt 54.4 kg
[2018-08-26 21:19] VITALS: BP 148/88
[2018-08-27 05:01] VITALS: BP 135/81
[2018-08-27 06:55] LABS: BASOPHIL % 0.1 % (0-2); PLATELET COUNT 255 x10^3mcL (130-400)
[2018-08-27 06:57] LABS: RED CELL DISTRIBUTION WIDTH 14.6 % (11.5-14.5)
[2018-08-27 07:08] LABS: CALCIUM 9.5 mg/dL (8.5-10.1); CARBON DIOXIDE 24.2 mmol/L (21-32); CHLORIDE SERUM 102 mmol/L (98-107); CREATININE SERUM 1.3 mg/dL (0.7-1.3); GFR1 > 60 mL/min; GLUCOSE SERUM 203 mg/dL (74-106); PHOSPHOROUS 2.9 mg/dL (2.5-4.9); POTASSIUM SERUM 3.7 mmol/L (3.5-5.1); SODIUM SERUM 138 mmol/L (136-145)
[2018-08-27 08:47] VITALS: BP 136/68
[2018-08-27 12:00] VITALS: BP 139/87
[2018-08-27 16:02] VITALS: BP 113/66
[2018-08-27 16:52] VITALS: BP 139/87
== END 2018-08-27 18:20 | disposition home or self-care (01) | DRG 816 ==
LOC: ED 13:24 → DU 15:35 → MU 15:35 → DU 16:06
PROVIDERS: Emergency Medicine; Family Medicine
DX: T40.5X1A Poisoning by cocaine, accidental (unintentional), initial encounter (principal); N17.0 Acute kidney failure with tubular necrosis; R65.10 Systemic inflammatory response syndrome (SIRS) of non-infectious origin without acute organ dysfunction; K31.84 Gastroparesis; E10.43 Type 1 diabetes mellitus with diabetic autonomic (poly)neuropathy; E10.65 Type 1 diabetes mellitus with hyperglycemia; E86.0 Dehydration; F12.10 Cannabis abuse, uncomplicated; K29.00 Acute gastritis without bleeding; T40.7X1A Poisoning by cannabis (derivatives), accidental (unintentional), initial encounter; F14.10 Cocaine abuse, uncomplicated; K59.00 Constipation, unspecified; I10 Essential (primary) hypertension; F17.210 Nicotine dependence, cigarettes, uncomplicated; Z68.22 Body mass index [BMI] 22.0-22.9, adult; Y92.89 Other specified places as the place of occurrence of the external cause
CPT/HCPCS: 82962; 83880; C9113; G0480; J0696; J1200; J1885; J2405; J2550; J3490; J7030; J8597; Q0092; Q9966; Q9967

== ENCOUNTER 2018-08-29 06:35 | Emergency (ER) | payer OTHER ==
[~2018-08-29] VITALS: Ht 160 cm; Wt 54.4 kg
[2018-08-29 06:36] VITALS: Ht 160 cm; Wt 54.4 kg
[2018-08-29 07:38] LABS: BASOPHIL % 0.4 % (0-2); PLATELET COUNT 262 x10^3mcL (130-400); RED CELL DISTRIBUTION WIDTH 14.4 % (11.5-14.5)
[2018-08-29 09:00] LABS: CALCIUM 9.1 mg/dL (8.5-10.1); CARBON DIOXIDE 31.4 mmol/L (21-32); CHLORIDE SERUM 105 mmol/L (98-107); CREATININE SERUM 1.1 mg/dL (0.7-1.3); GFR1 > 60 mL/min; GLUCOSE SERUM 106 mg/dL (74-106); POTASSIUM SERUM 3.7 mmol/L (3.5-5.1); SODIUM SERUM 142 mmol/L (136-145)
[2018-08-29 09:04] LABS: ALBUMIN 3.8 g/dL (3.4-5.0); ALKALINE PHOSPHATASE 63 U/L (46-116); ALT/SGPT 20 U/L (16-63); AST/SGOT 23 U/L (15-37); BILIRUBIN TOTAL 0.37 mg/dL (0.20-1.00); LIPASE 82 IU/L (73-393); TOTAL PROTEIN, SERUM 7.1 g/dL (6.4-8.2)
[2018-08-29 11:06] VITALS: BP 126/72
== END 2018-08-29 11:06 | disposition home or self-care (01) ==
LOC: ED 06:35
PROVIDERS: Emergency Medicine
DX: E11.43 Type 2 diabetes mellitus with diabetic autonomic (poly)neuropathy (principal); K31.84 Gastroparesis; I10 Essential (primary) hypertension; Z88.5 Allergy status to narcotic agent
CPT/HCPCS: J1885; J2270; J2405; J3490; J7030

== ENCOUNTER 2018-09-09 15:58 | Emergency (ER) | payer OTHER ==
[~2018-09-09] VITALS: Ht 154.9 cm; Wt 53.1 kg
[2018-09-09 16:10] VITALS: Ht 154.9 cm; Wt 53.1 kg
[2018-09-09 16:51] LABS: microscopic required? YES; urine erythrocyte 1+ (NEGATIVE)
[2018-09-09 16:55] LABS: BASOPHIL % 0.3 % (0-2); PLATELET COUNT 328 x10^3mcL (130-400); RED CELL DISTRIBUTION WIDTH 13.5 % (11.5-14.5)
[2018-09-09 17:01] LABS: CALCIUM 9.6 mg/dL (8.5-10.1); CHLORIDE SERUM 103 mmol/L (98-107); GFR1 > 60 mL/min; GLUCOSE SERUM 112 mg/dL (74-106); POTASSIUM SERUM 4.6 mmol/L (3.5-5.1); SODIUM SERUM 142 mmol/L (136-145)
[2018-09-09 17:02] LABS: AMPHETAMINE QUAL UR NONE DETECTED (See below)
[2018-09-09 17:15] LABS: ALBUMIN 3.9 g/dL (3.4-5.0); ALKALINE PHOSPHATASE 63 U/L (46-116); ALT/SGPT 18 U/L (16-63); AST/SGOT 23 U/L (15-37); BILIRUBIN TOTAL 0.6 mg/dL (0.20-1.00); FREE T4 0.89 ng/dL (0.76-1.46); LIPASE 95 IU/L (73-393); TOTAL PROTEIN, SERUM 7.5 g/dL (6.4-8.2)
[2018-09-09 20:25] VITALS: BP 139/99
== END 2018-09-09 20:26 | disposition home or self-care (01) ==
LOC: ED 15:58
PROVIDERS: Emergency Medicine
DX: R10.10 Upper abdominal pain, unspecified (principal); I10 Essential (primary) hypertension; Z88.5 Allergy status to narcotic agent
CPT/HCPCS: 84439; J1200; J2060; J2270; J2405; J2930; J3490; J7030

== ENCOUNTER 2018-09-10 06:15 | Emergency (ER) | payer OTHER ==
[~2018-09-10] VITALS: Ht 154.9 cm; Wt 54.9 kg
[2018-09-10 07:27] LABS: BASOPHIL % 0.2 % (0-2); PLATELET COUNT 271 x10^3mcL (130-400)
[2018-09-10 07:30] LABS: CALCIUM 8.4 mg/dL (8.5-10.1); CARBON DIOXIDE 26.7 mmol/L (21-32); CREATININE SERUM 1.6 mg/dL (0.7-1.3); POTASSIUM SERUM 4.2 mmol/L (3.5-5.1)
[2018-09-10 07:33] LABS: RED CELL DISTRIBUTION WIDTH 14.9 % (11.5-14.5)
[2018-09-10 07:34] LABS: BILIRUBIN TOTAL 0.72 mg/dL (0.20-1.00); TOTAL PROTEIN, SERUM 6.2 g/dL (6.4-8.2)
[2018-09-10 07:35] LABS: ALBUMIN 3.1 g/dL (3.4-5.0)
[2018-09-10 08:49] VITALS: BP 126/71
== END 2018-09-10 08:49 | disposition home or self-care (01) ==
LOC: ED 06:15
PROVIDERS: Emergency Medicine
DX: E11.43 Type 2 diabetes mellitus with diabetic autonomic (poly)neuropathy (principal); K31.84 Gastroparesis; F12.90 Cannabis use, unspecified, uncomplicated; I10 Essential (primary) hypertension; Z88.5 Allergy status to narcotic agent
CPT/HCPCS: J2765; J3010; J7030

== ENCOUNTER 2018-10-23 05:36 | Emergency (ER) | payer OTHER ==
[~2018-10-23] VITALS: Ht 154.9 cm; Wt 54.4 kg
[2018-10-23 05:45] VITALS: Ht 154.9 cm; Wt 54.4 kg
[2018-10-23 06:41] LABS: PLATELET COUNT 318 x10^3mcL (130-400); RED CELL DISTRIBUTION WIDTH 13.9 % (11.5-14.5)
[2018-10-23 06:59] LABS: CALCIUM 9.7 mg/dL (8.5-10.1); CARBON DIOXIDE 28.8 mmol/L (21-32); CHLORIDE SERUM 103 mmol/L (98-107); CREATININE SERUM 1.1 mg/dL (0.7-1.3); GFR1 > 60 mL/min; GLUCOSE SERUM 313 mg/dL (74-106); POTASSIUM SERUM 4.1 mmol/L (3.5-5.1); SODIUM SERUM 141 mmol/L (136-145)
[2018-10-23 07:03] LABS: ALBUMIN 3.9 g/dL (3.4-5.0); ALKALINE PHOSPHATASE 69 U/L (46-116); ALT/SGPT 20 U/L (16-63); AST/SGOT 19 U/L (15-37); BILIRUBIN TOTAL 0.35 mg/dL (0.20-1.00); LIPASE 103 IU/L (73-393); TOTAL PROTEIN, SERUM 7.8 g/dL (6.4-8.2)
[2018-10-23 08:04] LABS: BAND NEUTROPHIL 3 % (0-10); BASOPHIL 0 % (0-2); MONOCYTE 4 % (0-7); SEGMENTED NEUTROPHILS 88 % (37-75)
[2018-10-23 08:05] LABS: PLATELET MORPHOLOGY PLATELETS NORMAL; rbc morphology (normal/abnorm) ABNORMAL (NORMAL)
[2018-10-23 09:19] VITALS: BP 155/103
== END 2018-10-23 09:19 | disposition home or self-care (01) ==
LOC: ED 05:36
PROVIDERS: Emergency Medicine
DX: E11.43 Type 2 diabetes mellitus with diabetic autonomic (poly)neuropathy (principal); K31.84 Gastroparesis; F12.10 Cannabis abuse, uncomplicated; F17.210 Nicotine dependence, cigarettes, uncomplicated; I10 Essential (primary) hypertension; Z88.5 Allergy status to narcotic agent
CPT/HCPCS: 82962; 99406; J1630; J2405; J2765; J7030

== ENCOUNTER 2018-12-07 14:14 | Emergency (ER) | payer OTHER ==
[~2018-12-07] VITALS: Ht 154.9 cm; Wt 51.3 kg
[2018-12-07 14:20] VITALS: BP 167/127; Ht 154.9 cm; Wt 51.3 kg
[2018-12-07 17:06] LABS: CALCIUM 9.6 mg/dL (8.5-10.1); CHLORIDE SERUM 100 mmol/L (98-107); CREATININE SERUM 1.2 mg/dL (0.7-1.3); GFR1 > 60 mL/min; GLUCOSE SERUM 262 mg/dL (74-106); POTASSIUM SERUM 4.5 mmol/L (3.5-5.1); SODIUM SERUM 137 mmol/L (136-145)
[2018-12-07 17:10] LABS: ALKALINE PHOSPHATASE 71 U/L (46-116); ALT/SGPT 27 U/L (16-63); AST/SGOT 28 U/L (15-37); BILIRUBIN TOTAL 0.5 mg/dL (0.20-1.00); CHOLESTEROL 194 mg/dL (<200); CHOLESTEROL/HDL RATIO 2.3; HDL CHOLESTEROL 85 mg/dL (40-60); LIPASE 51 IU/L (73-393); TOTAL PROTEIN, SERUM 7.9 g/dL (6.4-8.2); TRIGLYCERIDES 110 mg/dL (<150)
[2018-12-07 17:13] LABS: BASOPHIL % 0.3 % (0-2); PLATELET COUNT 372 x10^3mcL (130-400)
[2018-12-07 17:16] LABS: RED CELL DISTRIBUTION WIDTH 14.6 % (11.5-14.5)
[2018-12-07 17:23] LABS: FREE THYROXINE INDEX 2.9 ug/dL (1.4-4.5); T4(THYROXINE) 8.1 ug/dL (4.7-13.3)
[2018-12-07 17:49] LABS: T3 TOTAL 1.4 ng/mL
== END 2018-12-07 18:02 | disposition home or self-care (01) ==
LOC: ED 14:14
PROVIDERS: Specialist
DX: E11.43 Type 2 diabetes mellitus with diabetic autonomic (poly)neuropathy (principal); K31.84 Gastroparesis; I10 Essential (primary) hypertension; F12.10 Cannabis abuse, uncomplicated; F17.210 Nicotine dependence, cigarettes, uncomplicated; Z98.890 Other specified postprocedural states; Z88.1 Allergy status to other antibiotic agents; Z88.5 Allergy status to narcotic agent
CPT/HCPCS: 83880; 84439; G0480; J2550; J3490; J7030; Q0092

== ENCOUNTER 2019-03-04 12:14 | Emergency (ER) | payer OTHER ==
[~2019-03-04] VITALS: Ht 154.9 cm; Wt 55.3 kg
[2019-03-04 12:26] VITALS: Ht 154.9 cm; Wt 55.3 kg
[2019-03-04 13:28] LABS: BASOPHIL % 0.2 % (0-2); PLATELET COUNT 273 x10^3mcL (130-400); RED CELL DISTRIBUTION WIDTH 14.3 % (11.5-14.5)
[2019-03-04 13:31] LABS: CALCIUM 9.6 mg/dL (8.5-10.1); CARBON DIOXIDE 30.1 mmol/L (21-32); CHLORIDE SERUM 103 mmol/L (98-107); CREATININE SERUM 1.1 mg/dL (0.7-1.3); GFR1 > 60 mL/min; GLUCOSE SERUM 306 mg/dL (74-106); POTASSIUM SERUM 3.8 mmol/L (3.5-5.1); SODIUM SERUM 141 mmol/L (136-145)
[2019-03-04 13:37] LABS: ALBUMIN 3.8 g/dL (3.4-5.0); ALKALINE PHOSPHATASE 53 U/L (46-116); ALT/SGPT 26 U/L (16-63); AST/SGOT 16 U/L (15-37); BILIRUBIN TOTAL 0.6 mg/dL (0.20-1.00); LIPASE 44 IU/L (73-393); TOTAL PROTEIN, SERUM 6.9 g/dL (6.4-8.2)
[2019-03-04 17:29] VITALS: BP 155/86
== END 2019-03-04 16:29 | disposition home or self-care (01) ==
LOC: ED 12:14
PROVIDERS: Emergency Medicine
DX: R10.33 Periumbilical pain (principal); F12.929 Cannabis use, unspecified with intoxication, unspecified; E11.65 Type 2 diabetes mellitus with hyperglycemia; E11.42 Type 2 diabetes mellitus with diabetic polyneuropathy; I10 Essential (primary) hypertension; Z88.5 Allergy status to narcotic agent; Z88.8 Allergy status to other drugs, medicaments and biological substances
CPT/HCPCS: J1630; J2060; J3490; J7030

== ENCOUNTER 2019-05-12 16:21 | Emergency (ER) | payer OTHER ==
[~2019-05-12] VITALS: Ht 154.9 cm; Wt 53.1 kg
[2019-05-12 16:29] VITALS: Ht 154.9 cm; Wt 53.1 kg
[2019-05-12 17:17] LABS: BASOPHIL % 0.3 % (0-2); PLATELET COUNT 360 x10^3mcL (130-400)
[2019-05-12 17:19] LABS: RED CELL DISTRIBUTION WIDTH 14.9 % (11.5-14.5)
[2019-05-12 17:36] LABS: CALCIUM 9.4 mg/dL (8.5-10.1); CARBON DIOXIDE 26.7 mmol/L (21-32); CHLORIDE SERUM 103 mmol/L (98-107); CREATININE SERUM 1.4 mg/dL (0.7-1.3); GFR1 > 60 mL/min; GLUCOSE SERUM 122 mg/dL (74-106); MAGNESIUM 1.9 mg/dL (1.8-2.4); POTASSIUM SERUM 4.1 mmol/L (3.5-5.1); SODIUM SERUM 144 mmol/L (136-145)
[2019-05-12 17:41] LABS: ALKALINE PHOSPHATASE 66 U/L (46-116); ALT/SGPT 14 U/L (16-63); AST/SGOT 13 U/L (15-37); BILIRUBIN TOTAL 0.67 mg/dL (0.20-1.00); LIPASE 33 IU/L (73-393); TOTAL PROTEIN, SERUM 7.4 g/dL (6.4-8.2)
[2019-05-12 17:42] LABS: AMYLASE 24 U/L (25-115)
[2019-05-12 20:55] VITALS: BP 125/81
== END 2019-05-12 20:55 | disposition home or self-care (01) ==
LOC: ED 16:21
PROVIDERS: Emergency Medicine
DX: E11.43 Type 2 diabetes mellitus with diabetic autonomic (poly)neuropathy (principal); K31.84 Gastroparesis; K21.9 Gastro-esophageal reflux disease without esophagitis; I10 Essential (primary) hypertension; Z88.5 Allergy status to narcotic agent
CPT/HCPCS: 82962; C9113; G0480; J1200; J2405; J2765; J3490; J7030; Q0092